=== PATIENT | male | born 1970 | race Caucasian/White ===

== ENCOUNTER 2025-03-18 14:43 | Emergency (ER) | payer OTHER, SELFPAY ==
[2025-03-18 14:48] VITALS: BP 143/80
--- NOTE | 2025-03-18 15:58 | ED.GENMED ---
History of Present Illness
<José Hobbs MD, Resident - Last Filed: 03/18/25 19:52>
General
Chief Complaint: Chest Pain
Source: patient
Time Seen by Provider: 03/18/25 15:34
History of Present Illness
History of Present Illness:
Patient is a 54-year-old male with no significant past medical history, quit smoking greater than 30 years ago, currently not on any medications who is here for evaluation of chest pain.
The pain right after he had his lunch this afternoon, he had chicken salad that was homemade, pain was in the epigastric region, 8/10 in intensity, nonradiating, associated with lightheadedness and cold sweats. The episode lasted for about 2
minutes and then it gradually reduce in intensity. He had previous episode of chest pain about 2 weeks ago, at that time he was woken up from sleep and there was lightheadedness and dizziness along with cold sweats. That episode also lasted for a
couple of minutes and self resolved. Currently the patient feels fine, and rates his pain as 1-2/10.
Denies any nausea, vomiting, urinary symptoms, fatigue, tiredness or any other issues.
Past History
<José Hobbs MD, Resident - Last Filed: 03/18/25 19:52>
Past History
ED Past Medical History: None
ED Past Surgical History: None
Social History
Tobacco: Former smoker (Quit greater than 30 years ago)
Alcohol: Occasional (1-2 a week)
Drug: None
Personal:
Living: with family
Employment: Employed
Review of Systems
<José Hobbs MD, Resident - Last Filed: 03/18/25 19:52>
Review of Systems
All Other Systems: ROS reviewed and negative except as documented in HPI and ROS
Phy Exam
<José Hobbs MD, Resident - Last Filed: 03/18/25 19:52>
General Physical Exam
General Presentation: well appearing and no apparent distress
Cardiovascular Exam
Cardiovascular Exam: regular rate/rhythm, no edema, no murmur and normal peripheral pulses
Pulmonary Exam
Pulmonary Exam: lungs clear and no respiratory distress
Gastrointestinal Exam
Gastrointestinal Exam: normal bowel sounds, non tender and soft
Neurological Exam
Neurological Exam: alert, oriented x3 and no motor deficits
Musculoskeletal Exam
Musculoskeletal Exam: full ROM
Skin Exam
Skin Exam: normal color and warm/dry
Psychiatric Exam
Psychiatric Exam: normal mood/affect
Scores
<José Hobbs MD, Resident - Last Filed: 03/18/25 19:52>
Heart Score for Chest Pain Patients
STEMI patient?: No
History: Moderately Suspicious
ECG: Normal
Age: >45 - <65 years
Risk Factors: 1 or 2 Risk Factors
Troponin: </= Normal Limit
Heart Score for Chest Pain Patients: 3
Heart Score Risk: 2.5% MACE over next 6 weeks
<Cesar Martinez MD - Last Filed: 03/18/25 20:01>
Heart Score for Chest Pain Patients
Heart Score for Chest Pain Patients: 3
Heart Score Risk: 2.5% MACE over next 6 weeks
Course
<José Hobbs MD, Resident - Last Filed: 03/18/25 19:52>
Orders/Labs/Results
Orders:
Orders
03/18/25 14:44
Electrocardiogram (*1) Urgent
Reason for Study: Chest Pain
EKG- Treatment ONCE
03/18/25 15:55
US Abdomen Limited Urgent
Comment:
Reason For Exam: gallbladder,liver,bileducts
03/18/25 16:30
Basic Metabolic Panel Urgent
Lipase Urgent
Troponin I Urgent
03/18/25 16:52
Add On- LAB Urgent
Tests Added?: [facility]
03/18/25 17:07
CBC/With Diff [Complete Blood Count/With Diff] Urgent
Dlznv-[id number]-[id number] Routine
Comment: NEEDS TO BE COLLECTED CANT BE ADDED ON ORIGINAL SPECIMEN HEMOLYZED
03/18/25 18:15
Troponin I Urgent
Abnormal Lab Results
03/18/25 03/18/25
16:30 17:07
WBC 11.8 H 10^3/uL
(4.8-10.8)
Abs Immat Gran (auto) 0.1 H 10^3/uL
(0-0.05)
Absolute Neuts (auto) 9.5 H 10^3/uL
(1.4-6.5)
Absolute Monos (auto) 0.7 H 10^3/uL
(0.1-0.6)
Neutrophils % 80.1 H %
(42.2-75.2)
Lymphocytes % 12.5 L %
(20.5-51.1)
Sodium 134 L mmol/L
(135-145)
BUN 22 H mg/dl
(9-20)
03/18/25 17:07
03/18/25 16:30
Vital Signs
Initial and Last Documented VS:
Initial Vital Signs
Temp Pulse Resp BP Pulse Ox
98.1 F 67 18 143/80 100
03/18/25 14:48 03/18/25 14:48 03/18/25 14:48 03/18/25 14:48 03/18/25 14:48
Last Documented Vital Signs
Temp Pulse Resp BP Pulse Ox
98.1 F 70 16 130/85 99
03/18/25 14:48 03/18/25 18:57 03/18/25 18:30 03/18/25 18:00 03/18/25 18:30
<Cesar Martinez MD - Last Filed: 03/18/25 20:01>
Orders/Labs/Results
Orders:
Orders
03/18/25 14:44
Electrocardiogram (*1) Urgent
Reason for Study: Chest Pain
EKG- Treatment ONCE
03/18/25 15:55
US Abdomen Limited Urgent
Comment:
Reason For Exam: gallbladder,liver,bileducts
03/18/25 16:30
Basic Metabolic Panel Urgent
Lipase Urgent
Troponin I Urgent
03/18/25 16:52
Add On- LAB Urgent
Tests Added?: [facility]
03/18/25 17:07
CBC/With Diff [Complete Blood Count/With Diff] Urgent
Vemog-Gvtq-Qrfnprx Routine
Comment: NEEDS TO BE COLLECTED CANT BE ADDED ON ORIGINAL SPECIMEN HEMOLYZED
03/18/25 18:15
Troponin I Urgent
Abnormal Lab Results
03/18/25 03/18/25
16:30 17:07
WBC 11.8 H 10^3/uL
(4.8-10.8)
Abs Immat Gran (auto) 0.1 H 10^3/uL
(0-0.05)
Absolute Neuts (auto) 9.5 H 10^3/uL
(1.4-6.5)
Absolute Monos (auto) 0.7 H 10^3/uL
(0.1-0.6)
Neutrophils % 80.1 H %
(42.2-75.2)
Lymphocytes % 12.5 L %
(20.5-51.1)
Sodium 134 L mmol/L
(135-145)
BUN 22 H mg/dl
(9-20)
03/18/25 17:07
03/18/25 16:30
Vital Signs
Initial and Last Documented VS:
Initial Vital Signs
Temp Pulse Resp BP Pulse Ox
98.1 F 67 18 143/80 100
03/18/25 14:48 03/18/25 14:48 03/18/25 14:48 03/18/25 14:48 03/18/25 14:48
Last Documented Vital Signs
Temp Pulse Resp BP Pulse Ox
98.1 F 70 16 130/85 99
03/18/25 14:48 03/18/25 18:57 03/18/25 18:30 03/18/25 18:00 03/18/25 18:30
<José Hobbs MD, Resident - Last Filed: 03/18/25 19:52>
MDM/Problems Addressed
Differential Diagnosis Includes:
Acute coronary syndrome
Cholelithiasis/cholecystitis
Pancreatitis
Gastritis
GERD
Renal colic
MDM/Problems Addressed:
EKG done in triage, normal sinus rhythm with no acute ST-T changes.
Repeat troponin levels normal
Lipase within normal limits, ultrasound abdomen did not show any acute changes and gallbladder, liver, bile ducts pancreas
Reassured the patient and advised to follow-up with PCP
Discussed using [id number]-[id number] Pepcid
Possible referral to GI/cardiology by PCP
<José Hobbs MD, Resident - Last Filed: 03/18/25 19:52>
*Pulse Oximetry
SaO2: 100
Oxygen Mode of Delivery: Room air
Patient hypoxic: no
*Critical Care Note
Total Time (30-74mins, 75-104mins- exclusive of procedures): Not Applicable
ED Attending Note
<José Hobbs MD, Resident - Last Filed: 03/18/25 19:52>
-
Portions of this chart may have been created with voice recognition software.� Occasional wrong word or��sound alike� substitutions may have occurred due to the inherent limitations of voice recognition software.
<Cesar Martinez MD - Last Filed: 03/18/25 20:01>
ED Attending Note
Patient seen and examined by attending physician: Yes
ED Attending Note:
Patient without any significant past medical history, presents to ED secondary to sudden onset of chest pain, shortly after having lunch this afternoon around 1:30 PM. Chest pain described as sharp, nonradiating, associated with diaphoresis,
without any alleviating or exacerbating factors. Chest pain lasted approximately 2 minutes, with gradual improvement, with complete resolution within 5 minutes. Since then, chest pain has not returned. Patient reports having had same symptoms 2
weeks ago, which woke him up from sleep, with once again spontaneous resolution within minutes. Denies recent trauma. Denies recent injury. Denies recent illness. Denies recent travel or surgery. Denies back pain. Denies leg pain or swelling.
Denies family history of heart disease. Denies family history of blood clots. Denies recent change in diet. Denies recent illness.
Physical Exam
General: no apparent distress, not acutely ill. afebrile
Head: nc/at. eomi
Neck: supple. normal range of motion.
Heart: s1/s2 regular rate and rhythm
Lungs: no acute respiratory distress. clear bilaterally. chest wall nontender to palpation
Abdomen: normal bowel sounds. not tender.
Neuro: alert and oriented x 3. no focal neurological deficits
Skin: no rash
Psychiatric: well kept. interactive and cooperative
Extremities: no edema. no calf tenderness.
Patient with an unremarkable workup in ED, including repeat troponin, EKG, and abdominal ultrasound. Patient otherwise remains afebrile, hemodynamically stable, and without any recurrent symptoms. Patient presenting symptoms less likely ACS, but
likely nonspecific gastritis versus esophagitis. As such, patient will be advised to start PPI, diet modification, along with PCP follow-up as an outpatient, including consultation with GI physician/lap cutter, as an outpatient. Patient
expressed understanding, at time of discharge.
Discharge Plan
Departure
Patient Disposition: Home (Routine Discharge)
Date of Disposition: 03/18/25
Time of Disposition: 19:13
Patient with high blood pressure during this ER visit?: No
Discharge Problem:
Epigastric abdominal pain
Instructions: Acid Reflux and GERD in Adults (DC), Chest Pain CBC Follow Up
Referrals:
Krista Huang MD [Family Provider]
Activity Restrictions/Additional Instructions:
PLEASE FOLLOW UP WITH YOUR PCP-POSSIBLE REFERRAL TO GI /CARDIOLOGY
USE OTC PEPCID NEEDED
PLEASE COME BACK TO ER FOR RECURRENT,PERSISTENT SYMPTOMS OR WORRISOME SYMPTOMS LIKE NAUSEA,VOMITING,OR FEELING SICK
Interventions
Interventions:
*Risk Screen - Suicide Last Done: 03/18/25 14:48
*General Assessment Last Done: 03/18/25 14:48
*Neglect/Abuse Screening Last Done: 03/18/25 14:48
[facility] Risk Assessment Tool Last Done: 03/18/25 17:44
ED- Cardiac Assessment Last Done: 03/18/25 18:57
Discharge Date and Time
Print Language: BELARUSIAN
[2025-03-18 16:24] VITALS: BMI 22.5
[2025-03-18 17:00] VITALS: BP 133/88
[2025-03-18 17:00] LABS: Blood Urea Nitrogen 22 mg/dl (9-20); Calcium 9.4 mg/dl (8.4-10.2); Carbon Dioxide 28 mmol/L (22-30); Chloride 102 mmol/L (98-107); Estimated Creatinine Clearance 68 ml/min; Glucose 85 mg/dl (70-99); Lipase 265 U/L (23-300); Sodium 134 mmol/L (135-145); eGFR > 60.00
[2025-03-18 17:03] LABS: Troponin I < 0.012 ng/ml
[2025-03-18 17:19] LABS: Hematocrit 43.6 % (39.0-52.0); Hemoglobin 14.7 g/dL (13.0-18.0); Mean Corp Hgb Conc. 33.7 g/dL (33.0-37.0); Mean Corpuscular Volume 87.4 fL (80.0-94.0); Nucleated Red Blood Cells % 0 % (-); Platelet Count 277 10^3/uL (130-400); Red Cell Dist. Width 12.7 % (11.5-14.5)
[2025-03-18 17:32] LABS: ALT (SGPT) 20 U/L (0-50); AST (SGOT) 21 U/L (17-59); Albumin 4.6 g/dl (3.5-5.0); Alkaline Phosphatase 55 U/L (38-126); Total Protein 7.8 g/dl (6.3-8.2)
[2025-03-18 17:43] VITALS: BP 113/92
[2025-03-18 18:00] VITALS: BP 130/85
[2025-03-18 18:48] LABS: Troponin I < 0.012 ng/ml
[2025-03-18 19:00] VITALS: BP 132/83
[2025-03-18 19:37] VITALS: BP 133/76
== END 2025-03-18 19:45 | disposition home or self-care (01) ==
LOC: EMR 14:43
PROVIDERS: EMERGENCY PHYSICIAN Emergency Medicine; FAMILY PHYSICIAN Student in an Organized Health Care Education/Training Program
DX: R10.13 Epigastric pain (principal); Z87.891 Personal history of nicotine dependence
CPT/HCPCS: 99284; 76705; 80048; 80076; 83690; 84484; 85025; 93005